=== PATIENT | female | born 1965 | race Caucasian/White ===

== ENCOUNTER 2016-10-28 14:53 | Emergency (ER) | END 2016-10-28 20:15 | disposition home or self-care (01) | DX: M54.41 Lumbago with sciatica, right side (principal); G89.29 Other chronic pain; I10 Essential (primary) hypertension; J45.909 Unspecified asthma, uncomplicated; E11.9 Type 2 diabetes mellitus without complications; Z79.82 Long term (current) use of aspirin; Z79.84 Long term (current) use of oral hypoglycemic drugs | CPT/HCPCS: 80053; 81001; 83690; 84484; 85025; 93005; Z7610 ==

== ENCOUNTER 2017-01-20 18:36 | Emergency (ER) | payer OTHER ==
[~2017-01-20] VITALS: Ht 154.9 cm; Wt 103.5 kg
[~2017-01-20 18:36] MED LIST: ASPI-650; ATEN-122; BENA40TA54; IBUP800T25 PO; METF500T4; TRAM50TA2 PO
[2017-01-20 18:54] VITALS: Ht 154.9 cm; Wt 103.5 kg
[2017-01-20] MEDS ORDERED: AZIT250T94 PO (19:43)
[2017-01-20] MEDS ORDERED: D-ME473S18 PO (19:44)
[2017-01-20] MEDS ORDERED: ALBU2SYR10 PO (19:44)
[2017-01-20] MEDS ORDERED: ALBU8.5H3 INH (19:45)
--- NOTE | 2017-01-20 19:49 | ERD ---
ER Documentation Chief Complaint Date/Time DATE: 01/20/17 TIME: 19:48 Chief Complaint fever/cough/body aches x 10 days HPI This is a 51-year-old female presents to the ER with a productive cough for the last 10 days. Patient states that she's developed body aches and has developed a fever over the last 2 days. Patient denies any chest pain or shortness of breath. Patient states that her back hurts every time she coughs. She denies any nausea vomiting or diarrhea. There are no sick contacts at home. Patient has tried [id number] medications however they have not worked. ROS 12 point review of systems was done, all negative except per HPI. Medications Home Meds Active Scripts Albuterol Sulfate* (Proair HFA*) 8.5 Gm Hfa.aer.ad, 2 PUFF INH Q4, #1 INHALER Prov:LORAINE REINA 01/20/17 Dextromethorphan Hb-Promethazine Hcl (Promethazine DM Syrup) 473 Ml Syrup, 10 ML PO Q6H Y for COUGH, #4 OZ Prov:LORAINE REINA 01/20/17 Azithromycin* (Zithromax*) 250 Mg Tablet, 250 MG PO .ZPACK DIRECTED, #6 TAB TAKE 500 MG (2 TABS) THE FIRST DAY THEN 250 MG (1 TAB) DAYS 2-5 Prov:LORAINE REINA 01/20/17 Tramadol HCl (Tramadol HCl) 50 Mg Tablet, 50 MG PO Q4 Y for PAIN, #20 TAB Prov:AMARA HAIRSTON 10/28/16 Ibuprofen* (Motrin*) 800 Mg Tab, 800 MG PO Q6, #30 TAB Prov:AMARA HAIRSTON F 10/28/16 Reported Medications Atenolol* (Tenormin*) 50 Mg Tablet 11/22/09 Aspirin (Aspirin) 81 Mg Tablet 11/22/09 Benazepril Hcl* (Lotensin*) 40 Mg Tablet 11/22/09 Metformin Hcl* (Metformin Hcl*) 500 Mg Tablet 11/22/09 Allergies Allergies: Coded Allergies: No Known Drug Allergies (Verified Allergy, Mild, 01/20/17) PMhx/Soc History of Surgery: Yes (C/S x 2) Anesthesia Reaction: No Hx Neurological Disorder: No Hx Respiratory Disorders: No Hx Cardiac Disorders: Yes (htn) Hx Psychiatric Problems: No Hx Miscellaneous Medical Probl: Yes (diabetes) Hx Alcohol Use: No Hx Substance Use: No Hx Tobacco Use: No Physical Exam Vitals Vital Signs Date Time Temp Pulse Resp B/P Pulse Ox O2 Delivery O2 Flow Rate FiO2 01/20/17 18:54 98.0 90 20 132/79 97 Physical Exam GENERAL: The patient is well-developed, well-nourished, in no acute distress. NECK: Cervical spine is non tender with no step off. Supple, no nuchal rigidity HEENT: Atraumatic. Pupils equal, round and reactive to light. Extraocular muscles are grossly intact. Conjunctivae pink, no discharge. Bilateral tympanic membranes are clear with no evidence of erythema, effusion or dulling of the light reflex. Tonsilar erythema with no exudates or uvular deviation. Clear rhinorrhea. RESPIRATORY: Clear to auscultation bilaterally. There are no rales, wheezes or rhonchi. HEART: Regular rate and rhythm. No murmurs, clicks, rubs or gallops. EXTREMITIES: No clubbing or cyanosis. Full range of motion. Grossly neurovascularly intact. NEUROLOGIC: Alert and oriented. Cranial nerves II through XII are intact. SKIN: There is no rash. The skin is warm and dry. Procedures/MDM Differential diagnosis includes but is not limited to; Viral URI, allergic rhinitis, bronchitis, pertussis,pneumonia. She will be treated with azithromycin for possible bronchitis which is bacterial in etiology secondary to length and severity of symptoms. Clinical suspicion for pneumonia is low as patient appears well, is not hypoxic or in any respiratory distress. Additionally, patients physical examination is benign. Plan was discussed with patient they understand and agree. Patient needs to follow up with PCP in 1-2 days or return to ER sooner if symptoms worsen. Departure Diagnosis: Primary Impression: Bronchitis Condition: Stable Patient Instructions: What Is Bronchitis? Additional Instructions: Llame al doctor MAANA y cosme timi LISA PARA DENTRO DE 1-2 MORATAYA.Dgale a la secretaria que nosotros le instruimos hacer esta lisa.Avise o llame si doyle condicin se empeora antes de la lisa. Regresa aqui si peor o no mejor. LORAINE REINA Jan 20, 2017 19:49
== END 2017-01-20 19:45 | disposition home or self-care (01) ==
LOC: E/R 18:36
DX: J20.9 Acute bronchitis, unspecified (principal); I10 Essential (primary) hypertension; E11.9 Type 2 diabetes mellitus without complications; Z79.82 Long term (current) use of aspirin; Z79.84 Long term (current) use of oral hypoglycemic drugs
CPT/HCPCS: 99284

== ENCOUNTER 2017-11-29 22:07 | Emergency (ER) | END 2017-11-30 01:02 | disposition home or self-care (01) ==

== ENCOUNTER 2018-12-25 18:02 | Emergency (ER) | payer SELFPAY ==
[~2018-12-25] VITALS: Ht 157.5 cm; Wt 90.1 kg
[~2018-12-25 18:02] MED LIST changes: +ALBU8.5H8 INH; +AMIT25TA9 PO; +ASPI-817 PO; +ATEN50TA PO; +AZIT250T PO; -BENA40TA54; +BENA40TA54 PO; +BENA40TA56 PO; +CARI350T PO; +D-ME473S18 PO; +HYDR25TA6 PO; +IBUP-1542 PO; -IBUP800T25 PO; +IBUP800T48 PO; +METF-849 PO; +METF500T24; +METF500T24 PO; -METF500T4; +METO-429 PO; +NAPR375T PO
[2018-12-25 18:05] VITALS: Ht 157.5 cm; Wt 90.1 kg
[2018-12-25] MEDS ORDERED: ONDANSETRON (ODT) 4 MG TAB ODT STA (21:55)
[2018-12-25] MEDS ORDERED: HYDROCODONE/APAP (10/325) TAB PO ONE (22:00)
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
[2018-12-25] MEDS ORDERED: VERA240T94 PO (23:26)
[2018-12-25] MEDS ORDERED: IBUP800T48 PO (23:53)
[2018-12-25] MEDS ORDERED: ONDA4TAB14 PO (23:53)
[2018-12-25] MEDS ORDERED: HYDR-4011 PO (23:53)
[2018-12-25 23:56] VITALS: BP 160/72; PULSE 55; RESP 22
== END 2018-12-26 00:07 | disposition home or self-care (01) ==
LOC: E/R 18:02
DX: S09.90XA Unspecified injury of head, initial encounter (principal); S13.4XXA Sprain of ligaments of cervical spine, initial encounter; S20.219A Contusion of unspecified front wall of thorax, initial encounter; E11.9 Type 2 diabetes mellitus without complications; I10 Essential (primary) hypertension; R51 Headache; V49.59XA Passenger injured in collision with other motor vehicles in traffic accident, initial encounter
CPT/HCPCS: 70450; 71045